=== PATIENT | female | born 1935 | race Caucasian/White ===

== ENCOUNTER 2019-05-25 06:05 | Emergency (ER) | payer OTHER ==
[~2019-05-25] VITALS: Ht 149.9 cm; Wt 79.8 kg
--- NOTE | 2019-05-25 06:18 | NUR ---
PT BIBA C/O NECK PAIN S/P GLF YESTERDAY. -KO/ L EAR SWELLING AND BRUISING NOTED. +NAUSEA. PT AAOX4, RR EVEN AND UNLABORED ON W NAD NOTED. PT CONNECTED TO THE MONITOR AND POX.
--- NOTE | 2019-05-25 06:36 | NUR ---
PT PLACED ON A CERVICAL COLLAR
--- NOTE | 2019-05-25 06:40 | NUR ---
PT SENT TO CT
--- NOTE | 2019-05-25 07:00 | NUR ---
PT BACK FROM CT
[2019-05-25] MEDS ORDERED: ACETAMINOPHEN 325 MG TABLET ONE (07:44)
[2019-05-25] MEDS: ACETAMINOPHEN 325 MG TABLET PO ONE (07:48)
--- NOTE | 2019-05-25 08:54 | NUR ---
I called urgent care physician spoke to Asya/ Yvette agrees to pick her up [facility] [phone] /[phone]
--- NOTE | 2019-05-25 09:06 | NUR ---
DC home intruction to patient agrees to follow up PMD in 1 day verbalized understanding .
--- NOTE | 2019-05-25 09:11 | NUR ---
Patient to WC assited to Bathroom apply cool ajit to her back neck appreciated
[2019-05-25 10:05] VITALS: BP 133/78
== END 2019-05-25 10:07 | disposition home or self-care (01) ==
LOC: ER 06:05
DX: S16.1XXA Strain of muscle, fascia and tendon at neck level, initial encounter (principal); S09.8XXA Other specified injuries of head, initial encounter; F03.90 Unspecified dementia, unspecified severity, without behavioral disturbance, psychotic disturbance, mood disturbance, and anxiety; I10 Essential (primary) hypertension; Z98.890 Other specified postprocedural states; W07.XXXA Fall from chair, initial encounter; Y93.89 Activity, other specified; Y92.89 Other specified places as the place of occurrence of the external cause; Y99.8 Other external cause status
CPT/HCPCS: 70450; 72125; 99285; L0172